=== PATIENT | female | born 1965 | race African-American/Black ===

== ENCOUNTER 2021-01-24 01:34 | Emergency (ER) | payer OTHER ==
[~2021-01-24] VITALS: Ht 162.6 cm; Wt 73.3 kg
[2021-01-24 01:44] VITALS: BP 159/61
[2021-01-24] MEDS ORDERED: METHYLPREDNISOLONE SOD SUCC 125 MG/2 ML VIAL IM NR (03:00)
[2021-01-24] MEDS ORDERED: DIPH25CA83 PO (03:17)
[2021-01-24] MEDS ORDERED: P50 PO (03:17)
== END 2021-01-24 03:41 | disposition home or self-care (01) ==
LOC: ER 01:34
DX: T78.49XA Other allergy, initial encounter (principal); X58.XXXA Exposure to other specified factors, initial encounter; I10 Essential (primary) hypertension
CPT/HCPCS: 96372; 99283; J2930

== ENCOUNTER 2024-11-10 00:35 | Emergency (ER) | payer OTHER ==
[~2024-11-10] VITALS: Ht 165.1 cm; Wt 73.0 kg
[~2024-11-10 00:35] MED LIST: DIPH25CA83 PO; P50 PO
[2024-11-10 00:58] VITALS: TEMP 36.7; O2SAT 100
[2024-11-10] MEDS ORDERED: IBUP-2029 MT (01:08)
[2024-11-10] MEDS: IBUPROFEN 600MG TABLET PO ONE (01:45)
[2024-11-10 01:47] VITALS: BP 137/61; PULSE 61; RESP 18; O2SAT 100
== END 2024-11-10 01:52 | disposition home or self-care (01) ==
LOC: ER 00:43
DX: S90.31XA Contusion of right foot, initial encounter (principal); I10 Essential (primary) hypertension; Z79.52 Long term (current) use of systemic steroids; Z79.899 Other long term (current) drug therapy; W18.2XXA Fall in (into) shower or empty bathtub, initial encounter; Y93.89 Activity, other specified; Y92.89 Other specified places as the place of occurrence of the external cause; Y99.8 Other external cause status
CPT/HCPCS: 73630; 99283